=== PATIENT | female | born 1980 | race Caucasian/White ===

== ENCOUNTER 2017-06-06 19:52 | Emergency (ER) | payer OTHER ==
[2017-06-06 20:18] LABS: URINE HCG POC HCG NEGATIVE (Negative)
[2017-06-06 20:54] LABS: ADD MAN DIFF? NO
[2017-06-06] MEDS ORDERED: 0.9 % SODIUM CHLORIDE 10 ML DISP.SYRIN. IV (21:00)
[2017-06-06] MEDS: ONDANSETRON PF 4 MG/2 ML VIAL. IV (21:00)
[2017-06-06] MEDS: IV NORMAL SALINE 1000ML BAG 1,000 ML IV (21:00)
[2017-06-06] MEDS: FAMOTIDINE 20 MG/2 ML VIAL IVP (21:00)
[2017-06-06] MEDS ORDERED: MORPHINE SULFATE 4 MG/ML DISP.SYRIN. IV/SQ (21:00)
[2017-06-06 21:04] LABS: BILIRUBIN,URINE NEGATIVE (NEG); CLARITY,URINE CLEAR; COLOR,URINE YELLOW; GLUCOSE,URINE NEGATIVE (NEG); NITRITE,URINE NEGATIVE (NEG); PROTEIN,URINE NEGATIVE (NEG-TRACE); UROBILINOGEN,URINE 0.2 mg/dL (0.2 mg/dL)
[2017-06-06 21:06] LABS: BASO % 1 % (0-3); EOS # 0.2 x10^3/uL (0.0-0.7); EOS % 3 % (0-3); HEMATOCRIT 36.9 % (36.0-47.0); HEMOGLOBIN 12.9 g/dL (12.0-15.5); LYMPH # 2.3 x10^3/uL (1.0-4.8); LYMPH % 31 % (24-48); MEAN CORPUSCULAR HEMOGLOBIN 32 pg (25-35); MEAN CORPUSCULAR HGB CONC 35 g/dL (31-37); MEAN CORPUSCULAR VOLUME 90 fL (79-100); MONO # 0.7 x10^3/uL (0.0-1.1); MONO % 10 % (0-9); NEUT # 4.1 x10^3uL (1.8-7.7); NEUT % 56 % (31-73); PLATELET COUNT 238 x10^3/uL (140-400); RED CELL DISTRIBUTION WIDTH 12.6 % (11.5-14.5); WHITE BLOOD COUNT 7.3 x10^3/uL (4.0-11.0)
[2017-06-06 21:14] LABS: ANION GAP 15 (6-14); BLOOD UREA NITROGEN 18 mg/dL (7-20); CALCIUM 9.9 mg/dL (8.5-10.1); CARBON DIOXIDE 22 mmol/L (21-32); CHLORIDE 103 mmol/L (98-107); CREATININE 0.9 mg/dL (0.6-1.0); GFR 70.5; GLUCOSE 116 mg/dL (70-99); POTASSIUM 3.1 mmol/L (3.5-5.1); SODIUM 140 mmol/L (136-145)
[2017-06-06 21:19] LABS: ALK PHOS 59 U/L (46-116); ALT (SGPT) 57 U/L (14-59); AST (SGOT) 33 U/L (15-37); DIRECT BILIRUBIN < 0.1 mg/dL (0.0-0.2); LIPASE 153 U/L (73-393); TOTAL BILIRUBIN 0.4 mg/dL (0.2-1.0); TOTAL PROTEIN 7.8 g/dL (6.4-8.2)
[2017-06-06 21:23] LABS: BACTERIA,URINE 0 /HPF (0-FEW); RBC,URINE 0 /HPF (0-2); SQUAMOUS EPITHELIAL CELL,UR OCC /LPF
== END 2017-06-06 22:29 | disposition home or self-care (01) ==
LOC: ER 19:52
DX: R10.13 Epigastric pain (principal); R11.2 Nausea with vomiting, unspecified
CPT/HCPCS: 36415; 80048; 80076; 81001; 81025; 83690; 85025; 87086; 93005; 96361; 96374; 96375; 99285-25; J2405; J7030; S0028

== ENCOUNTER → 2019-01-23 | Outpatient (CLI) | payer OTHER ==
[2017-06-06 22:32] VITALS: BP 117/73
[~2019-01-23] VITALS: Ht 167.6 cm; Wt 95.3 kg
[~2019-01-23] MED LIST: FAMO-63 PO; HYOS0.12 PO; ONDA4TAB10 PO; POTA10TA12 PO; SINCALIDE 1.9 MCG in IV NORMAL SALINE 50ML 30 ML IV ONE
--- NOTE | 2019-01-23 10:12 | RAD ---
Exam: Right Upper Quadrant Ultrasound 01/23/2019 10:00 AM Indication: Right upper quadrant pain times series Technique: Multiple realtime grayscale sonographic images were obtained over the abdomen. Static images were submitted for interpretation. Comparisons: None Findings: Visualized portions of the pancreas are unremarkable. The liver is enlarged measuring 20 cm longitudinally. Liver is diffusely echogenic suggesting hepatic steatosis.. No focal hepatic lesions are identified. The gallbladder is nondistended. There is no evidence for cholelithiasis. There is no wall thickening, or pericholecystic fluid. The common bile duct is within normal limits measuring mm in diameter. The Right kidney is normal in size measuring cm. There is no evidence for mass, nephrolithiasis, or hydronephrosis No ascites is identified Impression: Hepatomegaly. Probable hepatic steatosis Electronically signed by: Jaime Mo MD (01/23/2019 10:10 AM) [id number]
--- NOTE | 2019-01-23 12:22 | RAD ---
EXAM: Nuclear hepatobiliary scan. HISTORY: Pain. TECHNIQUE: Following intravenous administration of 5.5 mCi Tc 99m Choletec, anterior images of the abdomen were obtained at five minute intervals through one hour. Subsequently, 1.9 mcg single live was administered and additional images to assess gallbladder ejection fraction were obtained. FINDINGS: There is prompt radiotracer uptake by the liver. No focal defect is seen. There is normal excretion into the biliary tree. The gallbladder is visualized within 5 minutes and there is free flow into the duodenum. The gallbladder ejection fraction is 81%. IMPRESSION: Increased gallbladder ejection fraction of 81%. This can be seen with biliary hyperkinesia. Electronically signed by: Effie Grant MD (01/23/2019 12:19 PM) [id number]
== END | disposition home or self-care (01) ==
LOC: US 12:24
PROVIDERS: ATTEND Internal Medicine Gastroenterology
DX: R16.0 Hepatomegaly, not elsewhere classified (principal)
CPT/HCPCS: 76705; 78227; A9537; J2805

== ENCOUNTER → 2019-11-10 | Outpatient (CLI) | payer OTHER ==
[2017-06-06 22:32] VITALS: BP 117/73
[~2019-11-10] MED LIST changes: +CONTRAST GIVEN. MC PRN; +IOHEXOL 240 MG/ML 50ML VIAL. PO ONE; +IOHEXOL 300 MG/ML 100ML VIAL. IV ONE; -SINCALIDE 1.9 MCG in IV NORMAL SALINE 50ML 30 ML IV ONE
--- NOTE | 2019-11-10 10:32 | RAD ---
CT ABD PELV W/ORAL IV CONTRAST History: RIGHT SIDE ABD PAIN X 1 YEAR Comparison: None. Technique: After administration of intravenous contrast, helical CT of the abdomen and pelvis was performed from the lung bases through the ischial tuberosities. Coronal and sagittal reconstructions were obtained. 75 mL of Omnipaque 350 were used. One or more of the following dose reduction techniques were utilized: Automated exposure control (AEC), Adjustment of mA and/or kV according to patient size, Use of iterative reconstruction technique such as ASiR, CT scan done according to ALARA and image gently/image wisely Findings: The visualized lung bases are clear. Hepatic steatosis. Liver measures 22 cm craniocaudad. Gallbladder, pancreas, spleen, and bilateral adrenal glands are normal. Symmetric renal enhancement. There is no focal renal mass. There is no hydronephrosis. The visualized loops of small bowel are normal. The visualized loops of large bowel are normal. There is no evidence of bowel obstruction. Appendix is normal. There is no free fluid. There is no mesenteric or retroperitoneal adenopathy. The abdominal aorta is normal in caliber. Pelvis Findings: Urinary bladder is normal. Uterus is present. No pelvic free fluid. There is no pelvic or inguinal adenopathy. There is no acute bony abnormality. IMPRESSION: 1. No acute findings. 2. Hepatomegaly and diffuse hepatic steatosis. Electronically signed by: Graham Lopes MD (11/10/2019 10:29 AM) [id number]
== END | disposition home or self-care (01) ==
LOC: CT 08:30
PROVIDERS: ATTEND Internal Medicine Gastroenterology
DX: K76.0 Fatty (change of) liver, not elsewhere classified (principal)
CPT/HCPCS: 74177; Q9966; Q9967

== ENCOUNTER → 2020-06-03 | Outpatient (CLI) | payer OTHER ==
[2017-06-06 22:32] VITALS: BP 117/73
[~2020-06-03] MED LIST changes: -CONTRAST GIVEN. MC PRN; -IOHEXOL 240 MG/ML 50ML VIAL. PO ONE; -IOHEXOL 300 MG/ML 100ML VIAL. IV ONE
--- NOTE | 2020-06-03 12:31 | KCIC ---
EXAM: Bilateral digital screening mammogram with tomosynthesis. HISTORY: 40-year-old female presents for baseline mammography. TECHNIQUE: Full-field digital craniocaudal and mediolateral oblique 2D and 3D tomosynthesis images of both breasts are obtained for evaluation. Computer aided detection was applied. COMPARISON: None. BREAST PARENCHYMAL DENSITY: Level C - Heterogeneously dense. FINDINGS: There is nodular asymmetry within the retroareolar aspect of the right breast and anterior 8:00 position of the right breast. There are similar-appearing nodularity within the 3:00 position of the left breast at mid depth. There is no suspicious calcification or architectural distortion withi n either breast. IMPRESSION: BI-RADS Category 0: Incomplete. Additional imaging needed. RECOMMENDATION: Further evaluation with full field true lateral views and spot compression views of b oth breasts to assess areas of nodularity is recommended. Sonographic imaging can also be performed i f deemed indicated based on additional mammographic findings. If your mammogram demonstrates that you have dense breast tissue, which could hide abnormalities, and if you have other risk factors for breast cancer that have been identified, you might benefit from s upplemental screening tests that may be suggested by your ordering physician. Dense breast tissue, i n and of itself, is a relatively common condition. This information is not provided to cause undue c oncern, but rather to raise your awareness and to promote discussion with your physician regarding th e presence of other risk factors, in addition to dense breast tissue. A report of your mammography re sults will be sent to you and your physician. You should contact your physician if you have any ques tions or concerns regarding this report. Mammography is a sensitive method for finding small breast cancers, but it does not detect them all a nd is not a substitute for careful clinical examination. A negative mammogram does not negate a clin ically suspicious finding and should not result in delay in biopsying a clinically suspicious abnorma lity. PQRS compliance statement - Patient information was entered into a reminder system with a target due date for the next mammogram. "Our facility is accredited by the [employer] Mammography [employer]." Electronically signed by: Effie Grant MD (06/03/2020 12:29 PM) [email or web address]
== END ==
LOC: KCIC MAMMO 10:17
PROVIDERS: ATTEND Family Medicine
DX: Z12.31 Encounter for screening mammogram for malignant neoplasm of breast (principal)
CPT/HCPCS: 77063; 77067

== ENCOUNTER → 2020-06-24 | Outpatient (CLI) | payer OTHER ==
[2017-06-06 22:32] VITALS: BP 117/73
--- NOTE | 2020-06-24 10:23 | KCIC ---
Bilateral diagnostic digital mammograms: Reason for examination: Nodular densities on screening mammogram. Comparison is made to mammographic exam dated 06/03/2020. Coned compression views were obtained in CC and lateral projections in the areas of mammographic conc deandre. There is still suggestion of some subtle nodularity which is probably in the retroareolar 9:00 positi on of the right breast. The additional small nodule seen anterior laterally on cc view of the right b reast however is not identified. In the left breast, there continue to be small nodular densities at approximately the 3:00 B position. Further evaluation with ultrasound follow. IMPRESSION: Subtle nodularity suggested in the retroareolar 9:00 position of the right breast. Small nodular densities at the 3:00 B position of the left breast. Ultrasound to follow. BI-RADS Category 0: Incomplete. Needs additional imaging evaluation. Bilateral breast ultrasound: Ultrasound examination was performed bilaterally in the areas of mammographic concern and axilla. In the right breast, there is some mild ductal ectasia with some minimal fibrocystic changes but no s uspicious nodules are seen. No abnormal appearing lymph nodes are seen in the right axilla. In the left breast, there are 2 small hypoechoic fibrocystic lesions at the 3:00 position 4 cm from t he nipple measuring 5.4 mm in greatest dimension and at the 3:00 position 5 cm from the nipple measur ing 5.3 mm in greatest dimension. No suspicious lesions are seen and no abnormal appearing lymph node s are seen in the IMPRESSION: Minimal ductal ectasia and fibrocystic changes in the right breast. Recommend reevaluation of the rig ht breast in 6 months with mammograms. 2 small subcentimeter fibrocystic type lesions in the left breast at the 3:00 position. Recommend 6 m onth sonographic follow-up of the left breast. BI-RADS Category 3: Probably Benign. "Our facility is accredited by the [employer] Mammography Program." This patient's information has been entered into a reminder system for the patient to be notified wit h the results of her examination and a target date for the next mammogram. Electronically signed by: Jacquie Westfall MD (06/24/2020 10:21 AM) [id number]
== END ==
LOC: KCIC MAMMO 08:28
PROVIDERS: ATTEND Family Medicine
DX: N60.41 Mammary duct ectasia of right breast (principal); N63.41 Unspecified lump in right breast, subareolar; N63.25 Unspecified lump in the left breast, overlapping quadrants; R92.8 Other abnormal and inconclusive findings on diagnostic imaging of breast; N60.12 Diffuse cystic mastopathy of left breast
CPT/HCPCS: 76641; 77066

== ENCOUNTER → 2020-08-17 | Outpatient (CLI) | payer OTHER ==
[2017-06-06 22:32] VITALS: BP 117/73
--- NOTE | 2020-08-17 10:38 | KCIC ---
EXAMINATION: MRI LEFT LOWER EXTREMITY JOINT WITHOUT INDICATIONS: Left ankle pain, stepped in a hole on 07/15/2020. TECHNIQUE: Multiplanar multisequence MRI of the left ankle was obtained without contrast. COMPARISON: Left ankle radiograph report 2020 FINDINGS: BONES AND CARTILAGE: There is marrow edema in the medial talus. There is a small osteochondral lesion at the lateral talar dome with focal subchondral marrow edema and disruption of the subchondral bone plate (image 14, series 8). This measures approximately 3 x 4 mm. No cystic changes, rim of fluid, o r displaced fragment. Articular cartilage is otherwise intact. LIGAMENTS: There are complete tears of the anterior talofibular ligament and calcaneofibular ligament . Posterior talofibular ligament is intact. The anterior and posterior inferior tibiofibular ligament s and interosseous ligament are intact. There is a partial tear of the deep deltoid ligament. Superfi cial deltoid ligament is attenuated but at least partially intact. TENDONS: The medial flexor tendons are intact. Small amount of fluid around the posterior tibial tend on. There is thickening of the peroneus longus tendon consistent with tendinopathy. Peroneus brevis t endon is intact. Small fluid around the peroneus tendons. The anterior extensor and Achilles tendons are intact. OTHER:Small subtalar joint effusion. Plantar fascia is intact. Muscles are intact. There is mild subc utaneous edema, greatest medially and laterally. The tarsal tunnel and sinus Tarsi are normal. IMPRESSION: 1. Complete tear of the anterior talofibular and calcaneofibular ligaments. Partial tears of the supe rficial and deep deltoid ligaments. 2. Contusion in the medial talus. 3. Small osteochondral lesion in the lateral talar dome. 4. Mild peroneus longus tendinopathy. Mild peroneus and posterior tibial tenosynovitis. Electronically signed by: Tiff Bob MD (08/17/2020 10:36 AM) [id number]
== END ==
LOC: KCIC MRI 07:52
PROVIDERS: ATTEND Nurse Practitioner
DX: S91.002A Unspecified open wound, left ankle, initial encounter (principal); X58.XXXA Exposure to other specified factors, initial encounter; Y93.89 Activity, other specified; Y92.89 Other specified places as the place of occurrence of the external cause; Y99.8 Other external cause status
CPT/HCPCS: 73721

== ENCOUNTER → 2021-01-04 | Outpatient (CLI) | payer OTHER ==
[2017-06-06 22:32] VITALS: BP 117/73
--- NOTE | 2021-01-04 09:17 | KCIC ---
Right breast diagnostic digital mammograms with 3-D tomosynthesis: Reason for examination: Follow-up nodular densities. Comparison is made to previous study dated 06/03/2020. Right breast mammograms in CC and oblique projections were obtained with 2-D imaging and 3-D tomosynt hesis imaging on a Siemens Inspiration unit and reviewed on the workstation. Interpretation was made with the benefit of CAD. The skin and nipple show no abnormalities. No abnormal axillary lymph nodes are seen. The breast pare nchyma shows scattered fatty and fibroglandular density. (Breast density: Category B.) There are no d ominant masses, suspicious calcifications or architectural distortion. Impression: No evidence of malignancy. Recommend routine screening. BI-RAD Category 1: Negative. Left breast ultrasound: Comparison is made to previous study dated 06/24/2020. Ultrasound examination of the left breast and axilla was performed. At the 3:00 position 5 cm from the nipple, there continues to be a small 5.1 mm fibrocystic lesion wh ich is stable. At the 3:00 position 4 cm from the nipple, there continues to be a small 5.9 mm hypoec hoic fibrocystic lesion. No suspicious nodules are seen. No abnormal appearing lymph nodes are seen i n the axilla. IMPRESSION: Benign-appearing fibrocystic lesions at the 3:00 position. No suspicious lesion seen. Recommend 6 mon th follow-up which can be performed at the time of bilateral mammograms. BI-RADS Category 3: Probably Benign. "Our facility is accredited by the [employer] Mammography Program." This patient's information has been entered into a reminder system for the patient to be notified wit h the results of her examination and a target date for the next mammogram. Electronically signed by: Jacquie Westfall MD (01/04/2021 9:15 AM) [email or web address]
== END ==
LOC: KCIC MAMMO 08:14
PROVIDERS: ATTEND Family Medicine
DX: R92.8 Other abnormal and inconclusive findings on diagnostic imaging of breast (principal)
CPT/HCPCS: 76641; 77065; G0279; 77061

== ENCOUNTER → 2021-06-21 | Outpatient (CLI) | payer OTHER ==
[2017-06-06 22:32] VITALS: BP 117/73
--- NOTE | 2021-06-21 13:10 | KCIC ---
Bilateral diagnostic digital mammograms with 3-D tomosynthesis: Reason for examination: Follow-up nodules. Comparison is made to previous studies dated back to 06/03/2020. Bilateral mammograms in CC and oblique projections were obtained with 2-D imaging and 3-D tomosynthes is imaging on a Siemens Inspiration unit and reviewed on the workstation. Interpretation was made wit h the benefit of CAD. The skin and nipples show no abnormalities. No abnormal axillary lymph nodes are seen. The breast par enchyma is heterogeneously dense. (Breast density: Category C.) There are no dominant masses, suspici ous calcifications or architectural distortion. Impression: No evidence of malignancy. Ultrasound to follow. Your patient's mammogram demonstrates that she has dense breast tissue (breast density category C or D), which could hide abnormalities, and if she has other risk factors for breast cancer that have bee n identified, she might benefit from supplemental screening tests that may be suggested by you as her ordering physician. Dense breast tissue, in and of itself, is a relatively common condition. Therefo re, this information is not provided to cause undue concern, but rather to raise your awareness and t o promote discussion with your patient regarding the presence of other risk factors, in addition to d ense breast tissue. Your patient's mammography results will be sent to her. BI-RAD Category 0: Incomplete. Needs additional imaging evaluation. Left breast ultrasound: Comparison is made to previous studies dated 01/04/2021 06/24/2020. Ultrasound examination of the left breast and axilla was performed. At the 3:00 position 5 cm from the nipple, there continues to be a 5.3 mm hypoechoic fibrocystic lesi on. At the 3:00 position 4 cm from the nipple, there continues to be 6.5 mm hypoechoic fibrocystic le federico. No abnormal appearing lymph nodes are seen in the left axilla. IMPRESSION: Continued presence of benign-appearing fibrocystic lesions at the 3:00 positions which are stable. No suspicious abnormalities are seen. Recommend routine mammographic follow-up. BI-RADS Category 2: Benign. "Our facility is accredited by the [employer] Mammography [employer]." This patient's information has been entered into a reminder system for the patient to be notified wit h the results of her examination and a target date for the next mammogram. Electronically signed by: Jacquie Westfall MD (06/21/2021 1:08 PM) [email or web address]
== END ==
LOC: KCIC US 08:04
PROVIDERS: ATTEND Family Medicine
DX: N64.89 Other specified disorders of breast (principal)
CPT/HCPCS: 76641; 77066; G0279; 77062